=== PATIENT | female | born 1975 | race Caucasian/White ===

== ENCOUNTER 2016-09-08 14:06 | Emergency (ER) | payer MEDICARE ==
[2016-09-08 14:24] VITALS: BP 110/78
--- NOTE | 2016-09-08 15:30 | UC ---
Throat Pain/Nasal Matty HPI - HPI Summary HPI Summary: ONE WEEK OF NONPRODUCTIVE COUGH, SINUS CONGESTION, SORE THROAT. NO FEVER. - History of Current Complaint Chief Complaint: UCRespiratory Stated Complaint: EYE/HEADACHE/CONGESTION Time Seen by Provider: 09/08/16 15:11 Hx Obtained From: Patient Hx Last Menstrual Period: 08/30/16 Onset/Duration: Gradual Onset, Lasting Weeks, Worse Since - DAILY Severity: Moderate Cough: Nonproductive Associated Signs & Symptoms: Positive: Hoarseness, Sinus Discomfort, Nasal Discharge - Epiglottits Risk Factors Epiglottis Risk Factors: Negative - Allergies/Home Medications Allergies/Adverse Reactions: Allergies Allergy/AdvReac Type Severity Reaction Status Date / Time Cefaclor [From [facility]] Allergy Intermediate Hives Verified 09/08/16 14:25 Sulfa Drugs Allergy Intermediate Hives Verified 09/08/16 14:25 PMH/Surg Hx/FS Hx/Imm Hx Previously Healthy: Yes Endocrine History Of: Reports: Thyroid Disease - Surgical History Surgical History: Yes Surgery Procedure, Year, and Place: bladder sling procedure. spinal cord stimulator insertion - Family History Known Family History: Positive: None - Social History Occupation: Employed Full-time Lives: With Family Alcohol Use: None Substance Use Type: None Smoking Status (MU): Heavy Every Day Tobacco Smoker Type: Cigarettes Amount Used/How Often: 3-4 cigarettes daily When Did the Patient Quit Smoking/Using Tobacco: 4 years ago Cessation Counseling: Counseled 3+Min - 10 Min - Immunization History Most Recent Influenza Vaccination: none Review of Systems Constitutional: Negative Skin: Negative Eyes: Drainage ENT: Ear Ache, Nasal Discharge Respiratory: Cough Cardiovascular: Negative Gastrointestinal: Negative Genitourinary: Negative Motor: Negative Neurovascular: Negative Musculoskeletal: Negative Neurological: Negative Psychological: Negative All Other Systems Reviewed And Are Negative: Yes Physical Exam Triage Information Reviewed: Yes Appearance: No Pain Distress, Well-Nourished, Ill-Appearing - MILD Vital Signs: Initial Vital Signs Temp 98.2 F 09/08/16 14:20 Pulse 82 09/08/16 14:20 Resp 16 09/08/16 14:20 BP 110/78 09/08/16 14:20 Pulse Ox 100 09/08/16 14:20 Vital Signs Reviewed: Yes Eyes: Positive: Discharge - RIGHT EYE ENT: Positive: Hearing grossly normal, Pharyngeal erythema, TM bulging, TM dull , Tonsillar swelling Dental Exam: Normal Neck: Positive: Supple, Nontender, Enlarged Nodes @ - BILAT ANTERIOR CERVICAL LN Respiratory Exam: Normal Respiratory: Positive: Chest non-tender, Lungs clear, Normal breath sounds, No respiratory distress, No accessory muscle use Cardiovascular Exam: Normal Cardiovascular: Positive: RRR, No Murmur, Pulses Normal Abdominal Exam: Normal Abdomen Description: Positive: Nontender, No Organomegaly Musculoskeletal Exam: Normal Musculoskeletal: Positive: Strength Intact Neurological Exam: Normal Psychological Exam: Normal Psychological: Positive: Normal Response To Family Skin Exam: Normal Throat Pain/Nasal Course/Dx - Differential Dx/Diagnosis Differential Diagnosis/HQI/PQRI: Influenza, Laryngitis, Sinusitis, Tonsillitis, URI Provider Diagnoses: SINUSITIS. TONSILLITIS Discharge - Discharge Plan Condition: Stable Disposition: HOME Prescriptions: Amoxicillin/Clavulanate TAB* [Augmentin TAB 875*] 875 mg PO BID #20 tab Patient Education Materials: Sinusitis (ED) Referrals: Tucker Lubin MD [Primary Care Provider] -
== END 2016-09-08 15:33 | disposition home or self-care (01) ==
LOC: UCCORT 14:06
DX: J32.9 Chronic sinusitis, unspecified (principal); J03.90 Acute tonsillitis, unspecified; Z88.1 Allergy status to other antibiotic agents; Z88.2 Allergy status to sulfonamides; F17.210 Nicotine dependence, cigarettes, uncomplicated; Z71.6 Tobacco abuse counseling
CPT/HCPCS: 99212; G0463

== ENCOUNTER 2017-04-03 15:04 | Emergency (ER) | payer MEDICARE, MEDICAID ==
[2017-04-03 16:37] VITALS: BP 111/72
--- NOTE | 2017-04-03 17:45 | UC ---
Cardiac HPI - HPI Summary HPI Summary: 41 female presents to [facility] with complaints of mid sternal and left sided chest pain that began a few weeks ago. Patient denies SOB, cough, fever/chills, congestion or any other symptoms at this time. States she gets infusions for lupus which her last was on 03/27 which last time caused her to get pericarditis. She also has had pneumonia in the past. States she feels fine other than the dull aching chest pain that is worse with inspiration. No other complaints. PMHX significant for lupus, gastroparesis, and RA. Denies food/ position worsening her chest pain. No recent trauma/injury. No recent travel or prolonged bed rest. Does take estridol and use cigarettes. No radiation besides one time, when it first started it was sharp shooting and went into her left shoulder blade. - History of Current Complaint Chief Complaint: UCGeneralIllness Stated Complaint: CONGESTION Time Seen by Provider: 04/03/17 16:40 Hx Obtained From: Patient Hx Last Menstrual Period: 03/18/17 Onset/Duration: Sudden Onset, Lasting Weeks, Still Present Timing: Constant Initial Severity: Mild Current Severity: Mild Chest Pain Location: Mid Sternal, Left Anterior Character: Dull/Aching, Sharp/Stabbing - with inspiration Aggravating Factor(s): Deep Breaths Alleviating Factor(s): Nothing Associated Signs & Symptoms: Positive: Chest Pain. Negative: Recent Stress, Numbness, Tingling, Weakness, Swelling, Nausea/Vomiting, Cough, Hemoptysis, Abdominal Pain, Calf Pain/Swelling - Risk Factors Pulmonary Embolism Risk Factors: Oral Contraceptives, Smoking - Allergy/Home Medications Allergies/Adverse Reactions: Allergies Allergy/AdvReac Type Severity Reaction Status Date / Time Cefaclor [From [facility]] Allergy Intermediate Hives Verified 04/03/17 16:37 Sulfa Drugs Allergy Intermediate Hives Verified 04/03/17 16:37 Home Medications: Home Medications Abatacept* [Orencia*] 250 mg IV SEE INSTRUCTIONS 04/03/17 [History Confirmed 05/10] PMH/Surg Hx/FS Hx/Imm Hx - Additional Past Medical History Additional PMH: PMHx: lupus, RA and gastroparesis - Surgical History Surgical History: Yes Surgery Procedure, Year, and Place: bladder sling procedure. spinal cord stimulator insertion - Family History Known Family History: Positive: None - Social History Alcohol Use: None Substance Use Type: None Smoking Status (MU): Light Every Day Tobacco Smoker Type: Cigarettes Amount Used/How Often: 7 cigs daily When Did the Patient Quit Smoking/Using Tobacco: 4 years ago - Immunization History Most Recent Influenza Vaccination: none Vaccination Up to Date: Yes Review of Systems Constitutional: Negative Respiratory: Negative Cardiovascular: Chest Pain Gastrointestinal: Negative Musculoskeletal: Negative All Other Systems Reviewed And Are Negative: Yes Physical Exam Triage Information Reviewed: Yes Appearance: Well-Appearing, No Pain Distress, Well-Nourished Vital Signs: Initial Vital Signs Temp 97.2 F 04/03/17 16:32 Pulse 81 04/03/17 16:32 Resp 17 04/03/17 16:32 BP 111/72 04/03/17 16:32 Pulse Ox 99 04/03/17 16:32 Vital Signs Reviewed: Yes Eyes: Positive: Conjunctiva Clear ENT: Positive: Normal ENT inspection, Hearing grossly normal, Pharynx normal, TMs normal Neck: Positive: Supple, Nontender, No Lymphadenopathy Respiratory: Positive: Chest non-tender, Lungs clear, Normal breath sounds, No respiratory distress, No accessory muscle use. Negative: Respiratory distress, Rhonchi, Stridor, Wheezing Cardiovascular: Positive: RRR, No Murmur, Pulses Normal, Brisk Capillary Refill , Other: - chest pain is reproducible Abdomen Description: Positive: Nontender, Soft Bowel Sounds: Positive: Present Musculoskeletal: Positive: Strength Intact, ROM Intact Neurological: Positive: Alert Skin Exam: Normal Diagnostics - Radiology chest Xray Interpretation: No Acute Changes - no acute intrathoracic disease Radiology Interpretation Completed By: Radiologist - EKG Cardiac Rate: NL Cardiac Rhythm: Sinus: Normal Ectopy: None ST Segment: Normal - Assessment/Plan Course Of Treatment: EKG and chest xray obtained. EKG appeared normal. chest xray unremarkable. due to patient complaint of symptoms, history of pericarditis /pneumonia, increased risk of DVT/PE and unable to perform complete work up to rule out other cardiorespiratory etiolgoy was referred to ER. (Aneurysm, PE, [place] ) Does not however appear to be pneumonia or pericarditis at this time. Normal vitals and PE findings, did have reproducible chest pain, possibly suggesting costochondritis however no significant cause. Patient decided to sign out AMA. Recommended to try ibuprofen and to follow up with PCP. Was educated and is aware of risk and worsening signs /symptoms. - Differential Diagnoses - Chest Pain Differential Diagnosis/HQI/PQRI: Acute FL, Chest Wall, GI Disease, Lower Respiratory Infection, Pulmonary Edema, Pulmonary Embolism, Other: - pericarditis - Differential Diagnoses - Hypertension Differential Diagnosis/HQI PQRI: AAA - Clinical Impression Provider Diagnoses: chest pain Discharge - Discharge Plan Condition: Stable Disposition: ADMITTED TO [facility] Referrals: Tucker Lubin MD [Primary Care Provider] - Additional Instructions: Recommend going straight to ER for further work up and rule out other serious etiology.
--- NOTE | 2017-04-03 18:01 | RAD ---
INDICATION: Anterior LEFT chest pain. Nonproductive cough. History of rheumatoid arthritis, lupus. COMPARISON: April 16, 2012 CT abdomen. TECHNIQUE: Dual energy PA and routine lateral views of the chest were obtained. REPORT: Clear lungs and pleural spaces. Negative for pneumothorax. The heart, pulmonary vasculature, and mediastinal contours are unremarkable. Dorsal column stimulator leads noted extending as far cephalad as T7. Unremarkable osseous structures and soft tissue contours. IMPRESSION: No evidence for acute intrathoracic disease.
== END 2017-04-03 18:09 | disposition short-term general hospital (02) ==
LOC: UCCORT 15:04
DX: R07.9 Chest pain, unspecified (principal); M06.9 Rheumatoid arthritis, unspecified; M32.9 Systemic lupus erythematosus, unspecified
CPT/HCPCS: 71020; 93005; 99212; G0463

== ENCOUNTER 2017-06-10 09:50 | Emergency (ER) | payer MEDICAID, MEDICARE, OTHER ==
[2017-06-10 10:54] VITALS: BP 132/76
--- NOTE | 2017-06-10 11:11 | UC ---
Throat Pain/Nasal Matty HPI - HPI Summary HPI Summary: 42 y/o female presents to the urgent care c/o CHOPRA, sore throat, B/L ear pain, nasal congestion and swollen lymph nodes and night sweats for the past week. Pt reports symptoms started with common cold, bur are getting worse. Pt states she has Hx of RA and Lupus. She had an infusion last week and that is when symptoms started. ore throat is 7/10 with swallowing. She started to take Tylenol Cold and flu yesterday. Pt tom SOB, chest pain, abdominal pain, N/V/D - History of Current Complaint Chief Complaint: UCRespiratory Time Seen by Provider: 06/10/17 11:00 Hx Obtained From: Patient Hx Last Menstrual Period: "about two, three weeks ago" Onset/Duration: Gradual Onset, Lasting Weeks - 1 week, Still Present, Worse Since - yesterday Severity: Moderate Pain Intensity: 7 - sore throat Pain Scale Used: 0-10 Numeric Cough: Nonproductive Associated Signs & Symptoms: Positive: Dysphagia, Sinus Discomfort, Nasal Discharge, Fever - Epiglottits Risk Factors Epiglottis Risk Factors: Negative - Allergies/Home Medications Allergies/Adverse Reactions: Allergies Allergy/AdvReac Type Severity Reaction Status Date / Time Cefaclor [From [facility]] Allergy Intermediate Hives Verified 06/10/17 10:47 Sulfa Drugs Allergy Intermediate Hives Verified 06/10/17 10:47 Adhesive Tape Allergy Rash Verified 06/10/17 10:47 Home Medications: Home Medications Dexamethasone IV* [Decadron IV*] 0 mg IV MONTHLY 06/10/17 [History Confirmed ] Ibuprofen TAB* [Motrin TAB* 800 MG] 800 mg PO Q8H PRN 06/10/17 [History Confirmed 06/10/17] Hpxosectbenox-Ir-RO W/ APAP [Tylenol Cold & Flu Severe [id number] mg] 2 tab PO Q6H PRN 06/10/17 [History Confirmed 06/10/17] Vitamin THERAPEUTIC TAB* [Theragran TAB*] 1 tab PO DAILY 06/10/17 [History Confirmed 06/10/17] PMH/Surg Hx/FS Hx/Imm Hx Previously Healthy: Yes Other Endocrine History: RA, Lupus Other GI/ History: IBS, gastroperesis Other Neurological History: DDD - Surgical History Surgical History: Yes Surgery Procedure, Year, and Place: bladder sling procedure. spinal cord stimulator insertion - Family History Known Family History: Positive: None - Social History Occupation: Employed Full-time Lives: With Family Alcohol Use: None Substance Use Type: None Smoking Status (MU): Light Every Day Tobacco Smoker Type: Cigarettes Amount Used/How Often: 1/4 PPD Length of Time of Smoking/Using Tobacco: Since Age 17 (Quit for 4 Years) When Did the Patient Quit Smoking/Using Tobacco: 4 years ago - Immunization History Most Recent Influenza Vaccination: Not the Season Vaccination Up to Date: Yes Review of Systems Constitutional: Fever - subjective at home Skin: Negative Eyes: Negative ENT: Sore Throat, Nasal Discharge, Sinus Congestion, Sinus Pain/Tenderness Respiratory: Cough - dry Cardiovascular: Negative Gastrointestinal: Negative Genitourinary: Negative Motor: Negative Neurovascular: Negative Musculoskeletal: Negative Neurological: Headache Psychological: Negative Is Patient Immunocompromised?: No All Other Systems Reviewed And Are Negative: Yes Physical Exam Triage Information Reviewed: Yes Vital Signs: Initial Vital Signs Temp 98.7 F 06/10/17 10:45 Pulse 76 06/10/17 10:45 Resp 16 06/10/17 10:45 BP 132/76 06/10/17 10:45 Pulse Ox 97 06/10/17 10:45 - Additional Comments VITAL SIGNS: Reviewed. GENERAL: Patient is a well developed and nourished female who is sitting comfortable in the examining table. Patient is not in any acute respiratory distress. HEAD AND FACE: No signs of trauma. No ecchymosis, hematomas or skull depressions. No sinus tenderness. EYES: PERRLA, EOMI x 2, No injected conjunctiva, no nystagmus. No photophobia. EARS: Hearing grossly intact. Ear canals and tympanic membranes are within normal limits. NOSE: erythematous,edematous nasal mucosa with yellowish nasal discharge MOUTH: Positive pharynx with erythema, no exudates, mild palatal petechiae. B/L tonsillar enlargement with no exudate. Uvula in midline. NECK: Supple, trachea is midline, Positive anterior cervical lymphadenopathy, no JVD, no carotid bruit, no c-spine tenderness, neck with full ROM. No meningeal signs, no Kernig's or brudzinskis signs. CHEST: Symmetric, no tenderness at palpation LUNGS: Clear to auscultation bilaterally. No wheezing or crackles. CVS: Regular rate and rhythm, S1 and S2 present, no murmurs or gallops appreciated. ABDOMEN: Soft, non-tender. No signs of distention. No rebound no guarding, and no masses palpated. Bowel sounds are normal. EXTREMITIES: FROM in all major joints, no edema, no cyanosis or clubbing. NEURO: Alert and oriented x 3. No acute neurological deficits. Speech is normal and follows commands. SKIN: Dry and warm Throat Pain/Nasal Course/Dx - Course Course Of Treatment: 42 y/o female presents to the urgent care c/o CHOPRA, sore throat, B/L ear pain, nasal congestion and swollen lymph nodes and night sweats for the past week. Pt reports symptoms started with common cold, bur are getting worse. Pt states she has Hx of RA and Lupus. She had an infusion last week and that is when symptoms started. Sore throat is 7/10 with swallowing. She started to take Tylenol Cold and flu yesterday. Pt denies SOB, chest pain, abdominal pain, N/V/D. Hx obtained. Pt with upper respiratory infection on examination. Rapid strep ordered, result: negative.Pt advised to continue taking Tylenol PO to alleviates symptoms of pain and swelling. Advised on hand washing to avoid spreading. Pt advised to rest, eat well and avoid strenuous exercise. If symptoms do not improve or worsen advised to return to the urgent care or f/u with her PCP for further evaluation and treatment. Pt understood and agreed - Differential Dx/Diagnosis Differential Diagnosis/HQI/PQRI: Influenza, Laryngitis, Otitis Media, Peritonsillar Abscess, Pharyngitis, Sinusitis, Tonsillitis, URI Provider Diagnoses: 1- upper respiratory infection Discharge - Discharge Plan Condition: Stable Disposition: HOME Patient Education Materials: Upper Respiratory Infection (ED) Referrals: Tucker Lubin MD [Primary Care Provider] - If Needed Additional Instructions: 1-Please continue taking Tylenol cold and flu PO q6-8hrs prn as instructed after meals to alleviate pain and swelling. Increase fluid intake, eat well, rest and avoid strenuous exercise. 2- Use the flonase as directed and apply OTC saline drops on each nostril to clear sinuses as instructed 2-If symptoms do not improve or worsen please return to the urgent care or f/u with your PCP for further evaluation and treatment.
== END 2017-06-10 11:49 | disposition home or self-care (01) ==
LOC: UCCORT 09:50
DX: J06.9 Acute upper respiratory infection, unspecified (principal); K58.9 Irritable bowel syndrome, unspecified; K31.84 Gastroparesis
CPT/HCPCS: 87651; 99211; G0463

== ENCOUNTER 2018-06-23 13:15 | Emergency (ER) | payer OTHER ==
[2018-06-23 15:13] VITALS: BP 146/95
--- NOTE | 2018-06-23 15:41 | UC ---
Respiratory Complaint HPI - HPI Summary HPI Summary: C/O congestion with sinus pain chills and aching. Mild non-productive cough. Had remicaide infusion 10 days ago. - History of Current Complaint Chief Complaint: UCGeneralIllness Stated Complaint: SINUS PRESSURE, HEADACHE, FATIGUE Time Seen by Provider: 06/23/18 15:13 Hx Obtained From: Patient Hx Last Menstrual Period: "about two, three weeks ago" ?: No Onset/Duration: Sudden Onset, Lasting Days - 3, Worse Since - onset Timing: Constant Severity Initially: Mild Severity Currently: Moderate Pain Intensity: 0 Character: Cough: Nonproductive Associated Signs And Symptoms: Positive: Fever, Chills, URI, Nasal Congestion, Sinus Discomfort - Allergies/Home Medications Allergies/Adverse Reactions: Allergies Allergy/AdvReac Type Severity Reaction Status Date / Time Adhesive Tape Allergy Rash Verified 06/10/17 10:47 cefaclor [From Ceclor] Allergy Hives Verified 06/23/18 15:09 Sulfa (Sulfonamide Allergy Hives Verified 06/23/18 15:09 Antibiotics) Home Medications: Home Medications inFLIXimab* [Remicade*] 100 mg IV MONTHLY 06/23/18 [History Confirmed 06/23/18] PMH/Surg Hx/FS Hx/Imm Hx - Additional Past Medical History Additional PMH: Lupus and RA. - Surgical History Surgical History: Yes Surgery Procedure, Year, and Place: bladder sling procedure. spinal cord stimulator insertion. HYSTERECTOMY - Family History Known Family History: Positive: Respiratory Disease - asthma Negative: Diabetes - Social History Occupation: Employed Full-time Lives: With Family Alcohol Use: None Substance Use Type: None Smoking Status (MU): Light Every Day Tobacco Smoker Type: Cigarettes Amount Used/How Often: 1/4 PPD Length of Time of Smoking/Using Tobacco: Since Age 17 (Quit for 4 Years) When Did the Patient Quit Smoking/Using Tobacco: 4 years ago - Immunization History Most Recent Influenza Vaccination: Not the 2017/2018 Season Vaccination Up to Date: Yes Review of Systems All Other Systems Reviewed And Are Negative: Yes Constitutional: Positive: Fever, Chills, Fatigue ENT: Positive: Sore Throat, Sinus Congestion, Sinus Pain/Tenderness Respiratory: Positive: Cough Is Patient Immunocompromised?: Yes Physical Exam Triage Information Reviewed: Yes Appearance: No Pain Distress, Ill-Appearing, Obese Vital Signs: Initial Vital Signs Temp 98.8 F 06/23/18 15:07 Pulse 83 06/23/18 15:07 Resp 19 06/23/18 15:07 BP 146/95 06/23/18 15:07 Pulse Ox 99 06/23/18 15:07 Vital Signs Reviewed: Yes Eyes: Positive: Conjunctiva Clear ENT: Positive: Pharynx normal, Nasal congestion, TMs normal Neck exam: Normal Respiratory: Positive: Wheezing - expiratory wheeze with coughing Cardiovascular Exam: Normal Musculoskeletal Exam: Normal Neurological Exam: Normal Psychological Exam: Normal Skin Exam: Normal UC Diagnostic Evaluation - Laboratory O2 Sat by Pulse Oximetry: 99 Respiratory Course/Dx - Differential Dx/Diagnosis Differential Diagnosis/HQI/PQRI: Asthma, Lower Resp Infection, Sinusitis Provider Diagnosis: Upper respiratory infection, Sinusitis, Bronchospasm, acute Discharge - Sign-Out/Discharge Documenting (check all that apply): Patient Departure All imaging exams completed and their final reports reviewed: No Studies - Discharge Plan Condition: Stable Disposition: HOME Prescriptions: Amoxicillin PO (*) [Amoxicillin 875 MG (*)] 875 mg PO BID #20 tab predniSONE TAB* [Deltasone 20 MG TAB*] 60 mg PO DAILY #18 tab Patient Education Materials: Upper Respiratory Infection (ED), Wheezing (ED), Prednisone (By mouth), Amoxicillin (By mouth) Referrals: Tucker Lubin MD [Primary Care Provider] - Additional Instructions: NASAL SPRAYS AND DROPS: Afrin in the PUMP/ MIST bottle (Get generic 12 hours nasal decongestant spray). Tilt your head down and look at the floor while doing a strong sniff with the spray. Decongestant nasal sprays and drops often give dramatic relief from congestion. They are often recommended for patients with sinus infection to assist with sinus drainage. Persons with high blood pressure should consult the doctor before using these nasal sprays. Afrin and Harry-Synephrine are common [id number] preparations. They should not be used for more than five days, as "rebound" congestion can occur - - the congestion flares as the drug wears off. A way of dealing with this rebound congestion problem is to medicate only one nostril each time, allowing the other nostril to recover from the medicine' s effects. When you no longer need the drug during the day, spray only one nostril each night. This helps you sleep well without severe rebound congestion. Call the doctor if you develop severe headache, palpitations, or chest pain. - Billing Disposition and Condition Condition: STABLE Disposition: Home
== END 2018-06-23 15:54 | disposition home or self-care (01) ==
LOC: UCCORT 13:15
DX: J06.9 Acute upper respiratory infection, unspecified (principal); J32.9 Chronic sinusitis, unspecified; J98.01 Acute bronchospasm; Z88.1 Allergy status to other antibiotic agents; Z88.2 Allergy status to sulfonamides; M06.9 Rheumatoid arthritis, unspecified; F17.210 Nicotine dependence, cigarettes, uncomplicated
CPT/HCPCS: 99212; G0463

== ENCOUNTER 2019-04-28 17:24 | Emergency (ER) | payer OTHER ==
--- NOTE | 2019-04-28 17:47 | UC ---
Skin Complaint HPI - HPI Summary HPI Summary: 44 yo female presents with 2 complaints. 1) She developed a sore throat and right ear pain today. 2) Over the last 2-3 weeks she has been noticing an itchy rash on her hands and feet. 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 Pt has been applying lotion with little relief. Denies fever, chills, sinus symptoms, cough. She is eating, drinking, and tolerating po well. - History of Current Complaint Time Seen by Provider: 04/28/19 17:47 Stated Complaint: SKIN COMPLAINT,ST,NAUSEA Hx Obtained From: Patient Hx Last Menstrual Period: "about two, three weeks ago" Onset Severity: Mild Current Severity: Mild Pain Intensity: 4 Pain Scale Used: 0-10 Numeric - Allergy/Home Medications Allergies/Adverse Reactions: Allergies Allergy/AdvReac Type Severity Reaction Status Date / Time Adhesive Tape Allergy Rash Verified 06/10/17 10:47 cefaclor [From Ceclor] Allergy Hives Verified 06/23/18 15:09 Sulfa (Sulfonamide Allergy Hives Verified 06/23/18 15:09 Antibiotics) PMH/Surg Hx/FS Hx/Imm Hx - Additional Past Medical History Additional PMH: Lupus - Surgical History Surgical History: Yes Surgery Procedure, Year, and Place: bladder sling procedure. spinal cord stimulator insertion. HYSTERECTOMY - Family History Known Family History: Positive: Respiratory Disease - asthma Negative: Diabetes - Social History Occupation: Employed Full-time Lives: With Family Alcohol Use: None Substance Use Type: None Smoking Status (MU): Light Every Day Tobacco Smoker Type: Cigarettes Amount Used/How Often: 1/4 PPD Length of Time of Smoking/Using Tobacco: Since Age 17 (Quit for 4 Years) When Did the Patient Quit Smoking/Using Tobacco: 4 years ago - Immunization History Most Recent Influenza Vaccination: Not the 2017/2018 Season Vaccination Up to Date: Yes Review of Systems All Other Systems Reviewed And Are Negative: No Constitutional: Positive: Negative Skin: Positive: Rash Eyes: Positive: Negative ENT: Positive: Sore Throat Respiratory: Positive: Negative Cardiovascular: Positive: Negative Gastrointestinal: Positive: Negative Neurological: Positive: Negative Psychological: Positive: Negative Physical Exam - Summary Physical Exam Summary: GENERAL: NAD. WDWN. No pain distress. SKIN: B/L palms with mildly erythematous flat rash with faint scale appearance. Similar appearing lesion on right medial foot. Itchy. No drainage or bleeding. HEENT: Head: AT/NC Eyes: Conjunctiva clear without inflammation or discharge. Ears: Hearing grossly normal. TMs intact, no bulging, erythema, or edema. Nose: Nasal mucosa pink and moist. NTTP maxillary and frontal sinus. Throat: Posterior oropharynx mild erythema and 3+ tonsillar enlargement. No exudates. Uvula midline. No hoarse voice or muffled voice. NECK: Supple. Nontender. No lymphadenopathy. CHEST: CTAB. No r/r/w. No accessory muscle use. Breathing comfortably and in no distress. CV: RRR.. Pulses intact. Cap refill <2seconds NEURO: Alert. PSYCH: Age appropriate behavior. Triage Information Reviewed: Yes Vital Signs: Vital Signs: Temp Pulse Resp BP Pulse Ox 98.2 F 82 16 134/74 100 04/28/19 17:55 04/28/19 17:55 04/28/19 17:55 04/28/19 17:55 04/28/19 17:55 Laboratory Tests 04/28/19 18:05 Group A Strep Rapid Negative Vital Signs Reviewed: Yes Course/Dx - Course Course Of Treatment: POC strep negative. Suspect viral sore throat. Regarding her rash - this appears most consistent with dyshidrotic eczema - Diagnoses Provider Diagnosis: Dyshidrotic eczema, Sore throat Discharge ED - Sign-Out/Discharge Documenting (check all that apply): Patient Departure All imaging exams completed and their final reports reviewed: No Studies - Discharge Plan Condition: Stable Disposition: HOME Prescriptions: Triamcinolone 0.1% CREAM (NF) [Kenalog 0.1% Cream (NF)] 1 applic TOPICAL BID #1 tube Patient Education Materials: Eczema (ED), Pharyngitis (ED) Referrals: Tucker Lubin MD [Primary Care Provider] - Additional Instructions: If you develop a fever, shortness of breath, chest pain, new or worsening symptoms - please call your PCP or go to the ED immediately. Your strep test was negative today - Billing Disposition and Condition Condition: STABLE Disposition: Home
[2019-04-28 18:00] VITALS: BP 134/74
== END 2019-04-28 18:17 | disposition home or self-care (01) ==
LOC: UCCORT 17:24
DX: L30.1 Dyshidrosis [pompholyx] (principal); J02.9 Acute pharyngitis, unspecified; H92.01 Otalgia, right ear; M32.9 Systemic lupus erythematosus, unspecified; Z88.1 Allergy status to other antibiotic agents; Z88.2 Allergy status to sulfonamides; Z91.048 Other nonmedicinal substance allergy status; Z87.891 Personal history of nicotine dependence
CPT/HCPCS: 87651; 99212; G0463